=== PATIENT | male | born 1965 | race Caucasian/White ===

== ENCOUNTER 2016-05-16 08:08 | Emergency (ER) | payer BC ==
[~2016-05-16] VITALS: Ht 177.8 cm; Wt 100.0 kg
[2016-05-16 08:10] VITALS: BP 127/81; PULSE 73; RESP 18; TEMP 97.6; O2SAT 94
[2016-05-16] MEDS ORDERED: SODIUM CHLOR 0.9% 1000 ML INJ 1,000 ML IV SCH (08:32)
[2016-05-16] MEDS ORDERED: LOVA10TA PO (08:33)
[2016-05-16 08:34] VITALS: O2SAT 96
[2016-05-16 08:36] VITALS: BP 133/86; PULSE 73; RESP 18; TEMP 98.8; O2SAT 97
--- NOTE | 2016-05-16 08:40 | PD ---
HPI Chief Complaint: Abdominal Pain Time Seen by Provider: 08:23 Travel History International Travel<30 days: No Contact w/Intl Traveler<30days: No Traveled to known affect area: No History of Present Illness HPI The patient is a 50-year-old male who presents emergency department for abdominal pain. The patient states he developed abdominal pain on Tuesday which is located in the left upper quadrant and the left flank. The pain is persistent, but the patient denies any associated nausea, vomiting, or diarrhea. The patient denies any change in bowel habits, had a normal bowel movement yesterday. The patient does have a history of similar pain in the past secondary to diverticulitis. The patient has been treated multiple times for diverticulitis, but denies any previous abdominal surgeries. The patient called his primary physician and was referred to the emergency department for CT of the abdomen/pelvis. The patient denies any dysuria, frequency, urgency, hematuria, or history of nephrolithiasis. The patient does complain of intermittent chills, but denies any actual fever. The patient's symptoms are moderate, possibly exacerbated by diverticulitis, and alleviated in the past with antibiotics. The patient states he had an adverse reaction to Cipro, has been treated with Augmentin in the past with good results. PFSH Past Medical History Diverticulitis: Yes Triglycerides - High: Yes Influenza Vaccination: No Past Surgical History Thoracic Surgery: Yes (gyno mastitis ) Social History Alcohol Use: Yes (social ) Tobacco Use: Yes (dip) Substance Use: No Allergies-Medications (Allergen,Severity, Reaction): Coded Allergies: Cipro (Verified Adverse Reaction, Intermediate, Nausea/Vomiting, 05/16/16) Reported Meds & Prescriptions Reported Meds & Active Scripts Active Reported Lovastatin 10 Mg Tab Unknown Dose PO DAILY Review of Systems Except as stated in HPI: all other systems reviewed are Neg General / Constitutional: Positive: Chills, No: Fever Cardiovascular: No: Chest Pain or Discomfort Respiratory: No: Shortness of Breath Gastrointestinal: Positive: Abdominal Pain, No: Nausea, Vomiting, Diarrhea, Constipation, Changes in Bowel Habits Genitourinary: No: Urgency, Frequency, Dysuria, Hematuria Skin: No Rash Physical Exam Narrative GENERAL: Awake, alert, pleasant 50-year-old male who appears his stated age and is in no acute respiratory distress. SKIN: Warm and dry. HEAD: Atraumatic. Normocephalic. EYES: No injection or drainage. ENT: No nasal bleeding or discharge. Mucous membranes pink and moist. NECK: Trachea midline. No JVD. CARDIOVASCULAR: Regular rate and rhythm. No murmur appreciated. RESPIRATORY: No accessory muscle use. Clear to auscultation. Breath sounds equal bilaterally. GASTROINTESTINAL: Abdomen soft, mild tenderness of the left aspect of the abdomen, but no rebound tenderness, guarding, or rigidity. Back: No CVA tenderness. MUSCULOSKELETAL: No obvious deformities. No clubbing. No cyanosis. No edema. NEUROLOGICAL: Awake and alert. No obvious cranial nerve deficits. Motor grossly within normal limits. Normal speech. PSYCHIATRIC: Appropriate mood and affect; insight and judgment normal. Data Data Last Documented VS Vital Signs Date Time Temp Pulse Resp B/P Pulse Ox O2 Delivery O2 Flow Rate FiO2 05/16/16 08:36 98.8 73 18 133/86 97 Room Air Orders Complete Blood Count With Diff (05/16/16 08:32) Comprehensive Metabolic Panel (05/16/16 08:32) Lipase (05/16/16 08:32) Urinalysis - C+S If Indicated (05/16/16 08:32) Ct Abd/Pel W/O Iv Contrast (05/16/16 08:32) Iv Access Insert/Monitor (05/16/16 08:32) Ecg Monitoring (05/16/16 08:32) Oximetry (05/16/16 08:32) Morphine Inj (Morphine Inj) (05/16/16 08:45) Ondansetron Inj (Zofran Inj) (05/16/16 08:45) Ampicillin-Sulbactam Inj (Unasyn Inj) (05/16/16 08:45) Sodium Chlor 0.9% 1000 Ml Inj (Ns 1000 M (05/16/16 08:32) Sodium Chloride 0.9% Flush (Ns Flush) (05/16/16 08:45) Labs Laboratory Tests Test 05/16/16 05/16/16 08:40 08:48 White Blood Count 14.9 TH/MM3 Red Blood Count 4.84 MIL/MM3 Hemoglobin 14.9 GM/DL Hematocrit 43.0 % Mean Corpuscular Volume 88.8 FL Mean Corpuscular Hemoglobin 30.8 PG Mean Corpuscular Hemoglobin 34.7 % Concent Red Cell Distribution Width 12.7 % Platelet Count 159 TH/MM3 Mean Platelet Volume 10.5 FL Neutrophils (%) (Auto) 77.5 % Lymphocytes (%) (Auto) 12.9 % Monocytes (%) (Auto) 8.5 % Eosinophils (%) (Auto) 0.9 % Basophils (%) (Auto) 0.2 % Neutrophils # (Auto) 11.5 TH/MM3 Lymphocytes # (Auto) 1.9 TH/MM3 Monocytes # (Auto) 1.3 TH/MM3 Eosinophils # (Auto) 0.1 TH/MM3 Basophils # (Auto) 0.0 TH/MM3 CBC Comment DIFF FINAL Differential Comment Sodium Level 139 MEQ/L Potassium Level 3.9 MEQ/L Chloride Level 106 MEQ/L Carbon Dioxide Level 25.8 MEQ/L Anion Gap 7 MEQ/L Blood Urea Nitrogen 12 MG/DL Creatinine 1.17 MG/DL Estimat Glomerular Filtration 65 ML/MIN Rate Random Glucose 103 MG/DL Calcium Level 8.9 MG/DL Total Bilirubin 0.9 MG/DL Aspartate Amino Transf 24 U/L (AST/SGOT) Alanine Aminotransferase 43 U/L (ALT/SGPT) Alkaline Phosphatase 63 U/L Total Protein 7.3 GM/DL Albumin 3.7 GM/DL Lipase 151 U/L Urine Color LIGHT-YELLOW Urine Turbidity CLEAR Urine pH 5.5 Urine Specific [place] 1.004 Urine Protein NEG mg/dL Urine Glucose (UA) NEG mg/dL Urine Ketones NEG mg/dL Urine Occult Blood NEG Urine Nitrite NEG Urine Bilirubin NEG Urine Urobilinogen LESS THAN 2.0 MG/DL Urine Leukocyte Esterase NEG Urine WBC LESS THAN 1 /hpf Microscopic Urinalysis Comment CULT NOT INDICATED MDM Medical Decision Making Medical Screen Exam Complete: Yes Emergency Medical Condition: Yes Medical Record Reviewed: Yes Interpretation(s) Laboratory Tests Test 05/16/16 05/16/16 08:40 08:48 White Blood Count 14.9 TH/MM3 Red Blood Count 4.84 MIL/MM3 Hemoglobin 14.9 GM/DL Hematocrit 43.0 % Mean Corpuscular Volume 88.8 FL Mean Corpuscular Hemoglobin 30.8 PG Mean Corpuscular Hemoglobin 34.7 % Concent Red Cell Distribution Width 12.7 % Platelet Count 159 TH/MM3 Mean Platelet Volume 10.5 FL Neutrophils (%) (Auto) 77.5 % Lymphocytes (%) (Auto) 12.9 % Monocytes (%) (Auto) 8.5 % Eosinophils (%) (Auto) 0.9 % Basophils (%) (Auto) 0.2 % Neutrophils # (Auto) 11.5 TH/MM3 Lymphocytes # (Auto) 1.9 TH/MM3 Monocytes # (Auto) 1.3 TH/MM3 Eosinophils # (Auto) 0.1 TH/MM3 Basophils # (Auto) 0.0 TH/MM3 CBC Comment DIFF FINAL Differential Comment Sodium Level 139 MEQ/L Potassium Level 3.9 MEQ/L Chloride Level 106 MEQ/L Carbon Dioxide Level 25.8 MEQ/L Anion Gap 7 MEQ/L Blood Urea Nitrogen 12 MG/DL Creatinine 1.17 MG/DL Estimat Glomerular Filtration 65 ML/MIN Rate Random Glucose 103 MG/DL Calcium Level 8.9 MG/DL Total Bilirubin 0.9 MG/DL Aspartate Amino Transf 24 U/L (AST/SGOT) Alanine Aminotransferase 43 U/L (ALT/SGPT) Alkaline Phosphatase 63 U/L Total Protein 7.3 GM/DL Albumin 3.7 GM/DL Lipase 151 U/L Urine Color LIGHT-YELLOW Urine Turbidity CLEAR Urine pH 5.5 Urine Specific [place] 1.004 Urine Protein NEG mg/dL Urine Glucose (UA) NEG mg/dL Urine Ketones NEG mg/dL Urine Occult Blood NEG Urine Nitrite NEG Urine Bilirubin NEG Urine Urobilinogen LESS THAN 2.0 MG/DL Urine Leukocyte Esterase NEG Urine WBC LESS THAN 1 /hpf Microscopic Urinalysis Comment CULT NOT INDICATED CT of the abdomen and pelvis reveals focal inflammatory changes seen adjacent to the proximal descending colon with thickening of the bowel wall suggestive of focal diverticulitis. No free fluid or loculated fluid collections were demonstrated. Since this is a focal short segment area, recommend direct visualization by colonoscopy after appropriate medical therapy and acute inflammatory changes have resolved. Differential Diagnosis Differential diagnosis includes diverticulitis, diverticular abscess, perforated viscus, nephrolithiasis, pyelonephritis, splenomegaly, lower lobe pneumonia. Narrative Course IV was established, labs were drawn and sent, and the patient was placed on cardiac telemetry monitoring and continuous pulse oximetry monitoring. The patient was administered morphine, Zofran, Unasyn, and IV fluids. Noncontrast CT of the abdomen and pelvis was ordered to evaluate for diverticulitis. Laboratory evaluation reveals a mildly elevated white count of 14.9, LFTs and lipase are unremarkable. CT the abdomen and pelvis reveals focal inflammatory changes seen adjacent to the proximal descending colon with thickening of the bowel wall suggestive of focal diverticulitis. The patient will be discharged home on Augmentin and pain medication. He is advised to follow-up with his primary physician, Dr. Stahl, and return if symptoms worsen or progress. Diagnosis Primary Impression: Acute diverticulitis Patient Instructions: General Instructions Additional Instructions: Medications as directed. Follow-up with your primary physician. Please provide the patient a copy of his CT results and lab results at discharge. Return if symptoms worsen or progress. Med/Other Pt SpecificInfo: Prescription(s) given Scripts Hydrocodone-Acetaminophen ([place])5-325 mg Tab1 Tab PO Q6H PRN (PAIN) #20 TAB Ref 0 Prov:Roberto Leonardo MD 05/16/16 Amoxicillin-Clavulanate (Augmentin)875-125 mg Jik212 Mg PO BID 10 Days Ref 0 not for use in CrCl <30 ml/min. Prov:Roberto Leonardo MD 05/16/16 Disposition: 01 DISCHARGE HOME Condition: Stable Roberto Leonardo MD May 16, 2016 08:40
[2016-05-16] MEDS ORDERED: SODIUM CHLORIDE 0.9% FLUSH 5 ML FLUSH IVF PRN (08:45)
[2016-05-16] MEDS ORDERED: MORPHINE SULFATE 4 MG/ML INJ IV PUSH ONE ×2 (08:45→10:00)
[2016-05-16] MEDS ORDERED: AMPICILLIN-SULBACTAM INJ 3 GM in SODIUM CHLORIDE 0.9% INJ 100 ML IV ONE (08:45)
[2016-05-16] MEDS ORDERED: ONDANSETRON HCL 4 MG/2 ML VIAL IVP ONE (08:45)
[2016-05-16 08:54] LABS: AUTOMATED NEUTROPHIL # 11.5 TH/MM3 (1.8-7.7); BASOPHIL % 0.2 % (0.0-2.0); EOSINOPHIL # 0.1 TH/MM3 (0-0.4); EOSINOPHIL % 0.9 % (0.0-4.0); HEMO FLAGS DIFF FINAL; LYMPH % 12.9 % (9.0-44.0); LYMPHOCYTE # 1.9 TH/MM3 (1.0-4.8); MEAN CELL VOLUME 88.8 FL (80.0-100.0); MEAN CORPUSCULAR HEMOGLOBIN 30.8 PG (27.0-34.0); MEAN CORPUSCULAR HGB CONC 34.7 % (32.0-36.0); MONO % 8.5 % (0.0-8.0); NEUT % 77.5 % (16.0-70.0); PLATELET COUNT 159 TH/MM3 (150-450); RED BLOOD COUNT 4.84 MIL/MM3 (4.50-5.90); RED CELL DISTRIBUTION WIDTH 12.7 % (11.6-17.2); WHITE BLOOD COUNT 14.9 TH/MM3 (4.0-11.0)
[2016-05-16 09:10] LABS: BLOOD, URINE NEG (NEG); GLUCOSE,URINE NEG (NEG); KETONE, URINE NEG (NEG); NITRITE,URINE NEG (NEG); PH, URINE 5.5 (5.0-8.5); URINE COLOR LIGHT-YELLOW (YELLW/STRAW)
[2016-05-16 09:11] LABS: COMMENT (UR) CULT NOT INDICATED; CULTURE IF INDICATED CULT NOT INDICATED
[2016-05-16 09:11] LABS: ALT (GPT) 43 U/L (12-78); ANION GAP 7 MEQ/L (5-15); AST (GOT) 24 U/L (15-37); BICARBONATE 25.8 MEQ/L (21.0-32.0); BLOOD UREA NITROGEN 12 MG/DL (7-18); CHLORIDE 106 MEQ/L (98-107); GLOMERULAR FILTRATION RATE 65 ML/MIN (>89); POTASSIUM 3.9 MEQ/L (3.5-5.1); SODIUM (NA) 139 MEQ/L (136-145)
[2016-05-16 09:13] LABS: ALKALINE PHOSPHATASE 63 U/L (45-117); TOTAL BILIRUBIN ADULT 0.9 MG/DL (0.2-1.0)
--- NOTE | 2016-05-16 09:44 | RADRPT ---
EXAM DATE/TIME: 05/16/2016 09:27 [facility] COMPARISON: No previous studies available for comparison. INDICATIONS : Left sided abdominal pain. ORAL CONTRAST: No oral contrast ingested. RADIATION DOSE: 15.57 CTDIvol (mGy) MEDICAL HISTORY : Gyno mastitis. SURGICAL HISTORY : None. ENCOUNTER: Initial ACUITY: 2 days PAIN SCALE: 8/10 LOCATION: Left abdomen TECHNIQUE: Volumetric scanning of the abdomen and pelvis was performed. Using automated exposure control and ad justment of the mA and/or kV according to patient size, radiation dose was kept as low as reasonably achievable to obtain optimal diagnostic quality images. The lack of IV contrast limits the diagnosis for certain organ pathology. FINDINGS: LOWER LUNGS: Mild bibasilar scarring versus atelectasis. LIVER: Homogeneous density without lesion. There is no dilation of the biliary tree. No calcified gallston es. SPLEEN: Normal size without lesion. PANCREAS: Within normal limits. KIDNEYS: Normal in size and shape. There is no mass, stone, or hydronephrosis. There is a 3.8 cm cyst along t he lower pole of the left kidney. ADRENAL GLANDS: Within normal limits. VASCULAR: There is no aortic aneurysm. BOWEL/MESENTERY: The bowel gas pattern is within normal limits. There is stool throughout the colon. There is a few sc attered diverticula along the descending colon. There is focal inflammatory changes with bowel wall t hickening involving the proximal descending colon just past the splenic flexure. No free fluid or loc ulated fluid collections are seen to suggest an abscess. This is most likely some focal diverticuliti s. ABDOMINAL WALL: Within normal limits. RETROPERITONEUM: There is no lymphadenopathy. BLADDER: No wall thickening or mass. REPRODUCTIVE: Within normal limits. INGUINAL: There is no lymphadenopathy or hernia. MUSCULOSKELETAL: Within normal limits for patient age. CONCLUSION: 1. Focal inflammatory changes are seen adjacent to the proximal descending colon with thickening of t he bowel wall suggestive of focal diverticulitis. No free fluid or loculated fluid collections are de monstrated. 2. Since this is a focal short segment area, recommend direct visualization by colonoscopy after appr opriate medical therapy and the acute inflammatory changes have resolved. Wilton Veloz MD on May 16, 2016 at 9:36 Board Certified Radiologist. This report was verified electronically.
[2016-05-16] MEDS ORDERED: AUGM875T PO (09:48)
[2016-05-16] MEDS ORDERED: NORC5TAB PO (09:48)
[2016-05-16] MEDS ORDERED: KETOROLAC TROMETHAMINE 30 MG/ML (IVP) VIAL IV PUSH ONE (10:00)
== END 2016-05-16 10:17 | disposition home or self-care (01) ==
LOC: NEPE 08:08
DX: K57.92 Diverticulitis of intestine, part unspecified, without perforation or abscess without bleeding (principal)
CPT/HCPCS: 74176; 80053; 81001; 83690; 85025; 96374; 96375; 96376; 99284; J0295; J1885; J2270; J2405; J7030